=== PATIENT | male | born 1975 | race Hispanic/Latino ===

== ENCOUNTER 2018-02-14 15:17 | Emergency (ER) | payer SELFPAY ==
[2018-02-14 15:18] VITALS: BMI 36.9
--- NOTE | 2018-02-14 15:28 | ED PDOC ---
Arrival/HPI - General Historian: Patient <Dane William - Last Filed: 02/14/18 15:51> <Douglas Cash - Last Filed: 02/14/18 21:57> - General Time Seen by Provider: 02/14/18 15:24 - History of Present Illness Narrative History of Present Illness (Text): 02/14/18 15:24 42 year old male, pmh including ACL tear, nkda, biba as the patient found the patient sleeping in front of a house's lawn. Pt stated that he admits using 2 bags of heroine and took a tablet of xanax, stated that he feels fatigue and tired so he decided to sleep in front of the lawn, received 2mg of narcan when ambulance arrive which he is responsive now with aox3, no chest pain or shortness of breath, no numbness or tingling, no rash, no night sweat, no ulcers , no numbness or tingling, no blood on the scene, no palpitation, no homicidal or suicidal ideation, no auditory or visual complaints, no other medical or psychological complaints. (Dane William) Past Medical History - Provider Review Nursing Documentation Reviewed: Yes - Past History Past History: No Previous - Infectious Disease Hx of Infectious Diseases: None - Tetanus Immunization Tetanus Immunization: Up to Date - Past Medical History Past Medical History: No Previous - Cardiac Hx Cardiac Disorders: No - Pulmonary Hx Respiratory Disorders: No - Neurological Hx Neurological Disorder: No - HEENT Hx HEENT Disorder: No - Renal Hx Renal Disorder: No - Endocrine/Metabolic Hx Endocrine Disorders: No - Hematological/Oncological Hx Blood Disorders: No - Integumentary Hx Dermatological Disorder: No - Musculoskeletal/Rheumatological Hx Falls: Yes Hx Fractures: Yes (RIGHT FOOT AND LEFT KNEE) Hx Unsteady Gait: Yes - Gastrointestinal Hx Gastrointestinal Disorders: No - Genitourinary/Gynecological Hx Genitourinary Disorders: No - Psychiatric Hx Psychophysiologic Disorder: No Hx Anxiety: Yes Hx Depression: Yes Hx Substance Use: Yes (heroin) - Surgical History Hx Orthopedic Surgery: Yes (RIGHT ACL RECONSTRUCTION) - Anesthesia Hx Anesthesia: Yes Hx Anesthesia Reactions: No Hx Malignant Hyperthermia: No - Suicidal Assessment Feels Threatened In Home Enviroment: No <Dane William - Last Filed: 02/14/18 15:51> Family/Social History - Physician Review Nursing Documentation Reviewed: Yes Family/Social History: Unknown Family HX Smoking Status: Heavy Smoker > 10 Cigarettes Daily Hx Alcohol Use: Yes Hx Substance Use: Yes (heroin) Hx Substance Use Treatment: No <Dane William - Last Filed: 02/14/18 15:51> Allergies/Home Meds <Dane William - Last Filed: 02/14/18 15:51> <Douglas Cash - Last Filed: 02/14/18 21:57> Allergies/Adverse Reactions: Allergies No Known Allergies Allergy (Verified 02/14/18 15:30) Home Medications: Home Meds Medication Instructions Recorded Confirmed Alprazolam [Xanax] 2 mg PO BID 02/14/18 02/14/18 Oxycodone HCl [Oxycontin] 30 mg PO TID 02/14/18 02/14/18 Review of Systems - Review of Systems Constitutional: absent: Fatigue, Fevers Eyes: absent: Vision Changes ENT: absent: Hearing Changes Respiratory: absent: SOB, Cough Cardiovascular: absent: Chest Pain Gastrointestinal: absent: Abdominal Pain, Diarrhea, Nausea, Vomiting Musculoskeletal: absent: Arthralgias, Back Pain Skin: absent: Rash, Pruritis Psychiatric: absent: Anxiety, Depression, Suicidal Ideation <WilliamDane Jones - Last Filed: 02/14/18 15:51> Physical Exam - Systems Exam Head: Present: Atraumatic, Normocephalic, Other (no facial bony tenderness). No : Tenderness, Contusion, Swelling, Ecchymosis, Abrasion, Laceration Pupils: Present: PERRL Extroacular Muscles: Present: EOMI Conjunctiva: Present: Normal Mouth: Present: Moist Mucous Membranes Neck: Present: Normal Range of Motion, Trachea Midline. No: MIDLINE TENDERNESS , Paraspinal Tenderness, Lymphadenopathy Respiratory/Chest: Present: Clear to Auscultation, Good Air Exchange. No: Respiratory Distress, Accessory Muscle Use Cardiovascular: Present: Regular Rate and Rhythm, Normal S1, S2. No: Murmurs Abdomen: No: Tenderness, Distention, Peritoneal Signs Back: Present: Normal Inspection Upper Extremity: Present: Normal Inspection, Normal ROM, NORMAL PULSES, Neurovascularly Intact, Capillary Refill < 2s, Norm 2-Pt Discrimination. No: Cyanosis, Edema, Tenderness, Swelling, Erythema, Temperature Abnormalties, Deformity Lower Extremity: Present: Normal Inspection, NORMAL PULSES, Normal ROM, Neurovascularly Intact, Capillary Refill < 2 s. No: Edema, CALF TENDERNESS, Liv's Sign, Tenderness, Swelling, Erythema, Deformity, Temperature Abnormalties Neurological: Present: GCS=15, CN II-XII Intact, Speech Normal, Motor Func Grossly Intact, Gait Normal, Memory Normal, Other (no facial twitching, no tremors) Skin: Present: Warm, Dry, Normal Color. No: Rashes Lymphatic: No: Cervical Adenopathy Psychiatric: Present: Alert, Oriented x 3, Normal Insight, Normal Concentration <Dane William - Last Filed: 02/14/18 15:51> Vital Signs Temp Pulse Resp BP Pulse Ox 02/14/18 16:09 72 18 125/70 99 02/14/18 15:18 98.9 F 77 18 127/69 99 Medical Decision Making <Dane William - Last Filed: 02/14/18 15:51> <Douglas Cash - Last Filed: 02/14/18 21:57> ED Course and Treatment: 02/14/18 15:29 -Labs/magnesium/ck/ua/uds -IVF -Observe and reassess 02/14/18 15:48 -Pt. stated that he doesn't want to stay in the Emergency room, doesn't want to continue the care, declined labs/radiology studies, request IV removed, speaking in clear sentence with aox3, witnessed by Emergency room RN Anitha Anaya which IV removed. -I was grabbing Leaving Against Medical Advice (AMA) paper but he left with didn 't have a chance to explained for risks/benefits and sign the. The patient has been advised that they should return to the emergency room immediately if they change their mind at any time, or if their condition begins to change or worsen in any way.. -Pt. will be placed as elopement. (Dane William) - Lab Interpretations Lab Results: 02/14/18 15:47 Lab Results 02/14/18 15:47: Alcohol, Quantitative < 10 02/14/18 15:47: Salicylates < 1 L, Acetaminophen < 10.0 L 02/14/18 15:47: Sodium 140, Potassium 4.4, Chloride 102, Carbon Dioxide 27, Anion Gap 15, BUN 26 H, Creatinine 1.1, Est GFR ( Amer) > 60, Est GFR ( Non-Af Amer) > 60, Random Glucose 144 H, Calcium 9.4, Magnesium 2.0, Total Bilirubin 0.7, AST 84 H, ALT 45, Alkaline Phosphatase 61, Total Creatine Kinase 2804 H, CK-MB (CK-2) 9.2 H, CK-MB (CK-2) % 0.3 L, Total Protein 8.0, Albumin 4.1 , Globulin 3.9, Albumin/Globulin Ratio 1.1 - PA / FIELD CASHIER / Resident Statement / has reviewed & agrees with the documentation as recorded. <Dane William - Last Filed: 02/14/18 15:51> - PA / FIELD CASHIER / Resident Statement / has reviewed & agrees with the documentation as recorded. <Douglas Cash - Last Filed: 02/14/18 21:57> Disposition/Present on Arrival - Present on Arrival Any Indicators Present on Arrival: No History of DVT/PE: No History of Uncontrolled Diabetes: No Urinary Catheter: No History of Decub. Ulcer: No History Surgical Site Infection Following: None - Disposition Have Diagnosis and Disposition been Completed?: Yes Disposition Time: 15:51 <Dane Wililam - Last Filed: 02/14/18 15:51> <Douglas Cash - Last Filed: 02/14/18 21:57> - Disposition Diagnosis: Non-compliance Disposition: ELOPEMENT - ER ONLY Condition: STABLE Forms: [employer] ([place])
[2018-02-14] MEDS ORDERED: Sodium Chloride 0.9% 1,000 ML IV STA (15:34)
[2018-02-14 15:49] VITALS: RESP 18; TEMP 98.9; O2SAT 99
[2018-02-14 16:02] LABS: ACETAMINOPHEN < 10.0 ug/ml (10.0-20.0); SALICYLATE < 1 mg/dL (2.0-20.0)
[2018-02-14 16:04] LABS: ALB/GLOB RATIO 1.1 (1.1-1.8); ALBUMIN 4.1 g/dL (3.0-4.8); ALT/SGPT 45 U/L (7-56); AST/SGOT 84 U/L (17-59); BLOOD UREA NITROGEN 26 mg/dL (7-21); CALCIUM 9.4 mg/dL (8.4-10.5); GFR AFRICAN-AMERICAN > 60; GFR NON-AFRICAN AMERICAN > 60
[2018-02-14 16:10] VITALS: BP 125/70; PULSE 72
[2018-02-14 16:40] LABS: CK MB% 0.3 % (2.5-3.0); CK-MB 9.2 ng/mL (0.0-3.6)
== END 2018-02-14 15:50 | disposition left against medical advice (07) ==
LOC: ED 15:17
DX: Z91.19 Patient's noncompliance with other medical treatment and regimen (principal); F41.9 Anxiety disorder, unspecified; F19.10 Other psychoactive substance abuse, uncomplicated
CPT/HCPCS: 80053; 82550; 82553; 83735; 99284; G0480

== ENCOUNTER 2018-03-12 12:28 | Emergency (ER) | payer MEDICARE, OTHER ==
[2018-03-12 12:42] VITALS: BP 148/84; RESP 20; TEMP 97.8; BMI 33.9
--- NOTE | 2018-03-12 14:00 | ED PDOC ---
Arrival/HPI - General Chief Complaint: Substance Abuse Time Seen by Provider: 03/12/18 12:37 Historian: Patient, EMS - History of Present Illness Narrative History of Present Illness (Text): 03/12/18 14:21 42-year-old male presents today brought in by ambulance for substance abuse. Patient states that he snorted heroin about one hour prior to arrival. EMS states that they received a phone call that the patient appeared to be under the influence and they arrived on site for the patient standing in no distress. Patient denies chest pain or shortness of breath. He denies headaches dizziness or weakness. Patient admits to drug use. Patient denies alcohol use. Patient denies any trauma or injury. Patient denies suicidal or homicidal ideations. No other complaints Time/Duration: 1 hour Past Medical History - Provider Review Nursing Documentation Reviewed: Yes - Travel History Have you recently traveled outside [place] w/in the past 3 mons?: No - Past History Past History: No Previous - Infectious Disease Hx of Infectious Diseases: None - Tetanus Immunization Tetanus Immunization: Up to Date - Past Medical History Past Medical History: No Previous - Cardiac Hx Cardiac Disorders: No - Pulmonary Hx Respiratory Disorders: No - Neurological Hx Neurological Disorder: No - HEENT Hx HEENT Disorder: No - Renal Hx Renal Disorder: No - Endocrine/Metabolic Hx Endocrine Disorders: No - Hematological/Oncological Hx Blood Disorders: No - Integumentary Hx Dermatological Disorder: No - Musculoskeletal/Rheumatological Hx Falls: Yes Hx Fractures: Yes (RIGHT FOOT AND LEFT KNEE) Hx Unsteady Gait: Yes - Gastrointestinal Hx Gastrointestinal Disorders: No - Genitourinary/Gynecological Hx Genitourinary Disorders: No - Psychiatric Hx Psychophysiologic Disorder: No Hx Anxiety: Yes Hx Depression: Yes Hx Substance Use: Yes (heroin) - Surgical History Hx Orthopedic Surgery: Yes (RIGHT ACL RECONSTRUCTION) - Anesthesia Hx Anesthesia: Yes Hx Anesthesia Reactions: No Hx Malignant Hyperthermia: No - Suicidal Assessment Feels Threatened In Home Enviroment: No Family/Social History - Physician Review Nursing Documentation Reviewed: Yes Family/Social History: Unknown Family HX Smoking Status: Heavy Smoker > 10 Cigarettes Daily Hx Alcohol Use: Yes Hx Substance Use: Yes (heroin) Hx Substance Use Treatment: No Allergies/Home Meds Allergies/Adverse Reactions: Allergies No Known Allergies Allergy (Verified 03/12/18 12:42) Home Medications: Home Meds Medication Instructions Recorded Confirmed Alprazolam [Xanax] 2 mg PO BID 02/14/18 02/14/18 Oxycodone HCl [Oxycontin] 30 mg PO TID 02/14/18 02/14/18 Review of Systems - Review of Systems Constitutional: absent: Fatigue, Fevers Respiratory: absent: SOB, Cough Cardiovascular: absent: Chest Pain, Palpitations Gastrointestinal: absent: Abdominal Pain, Nausea, Vomiting Musculoskeletal: absent: Back Pain, Neck Pain Skin: absent: Rash, Pruritis Neurological: absent: Headache, Dizziness Psychiatric: absent: Anxiety, Depression, Suicidal Ideation Physical Exam Vital Signs Reviewed: Yes Vital Signs Temp Pulse Resp BP Pulse Ox 03/12/18 12:38 97.8 F 97 H 20 148/84 99 Temperature: Afebrile Blood Pressure: Normal Pulse: Regular Respiratory Rate: Normal Appearance: Positive for: Well-Appearing, Non-Toxic, Comfortable Pain Distress: None Mental Status: Positive for: Alert and Oriented X 3 - Systems Exam Head: Present: Atraumatic Mouth: Present: Moist Mucous Membranes Pharnyx: Present: Normal Neck: Present: Normal Range of Motion Respiratory/Chest: Present: Clear to Auscultation, Good Air Exchange. No: Respiratory Distress, Accessory Muscle Use Cardiovascular: Present: Regular Rate and Rhythm, Normal S1, S2. No: Murmurs Abdomen: No: Tenderness, Distention, Rebound, Guarding Back: Present: Normal Inspection Upper Extremity: Present: Normal ROM Lower Extremity: Present: Normal ROM Neurological: Present: GCS=15, Speech Normal Skin: Present: Warm, Dry, Normal Color. No: Rashes Psychiatric: Present: Alert, Oriented x 3 Medical Decision Making ED Course and Treatment: 03/12/18 14:25 42yr old male presents today [facility] for substance abuse. pt is alert and oriented x 3. no distress. fingerstick; 102 pt observed in er; pt reassessment; pt in no distress. ambulating with steady gait. alert and oriented. stable vitals. pt was advised to f/u with pmd and avoid drug use. Patient was advised immediate return if symptoms worsen persist or if new concerning symptoms develop Patient verbalizes understanding of discharge instructions and need for immediate followup. all aspects of this case were discussed the attending of record. Impression: Substance abuse Follow-up with primary care physician within the next 2 days Increase fluids Return if symptoms worsen persist or if new concerning symptoms develop Reassessment Condition: Re-examined, Improved Disposition/Present on Arrival - Present on Arrival Any Indicators Present on Arrival: No History of DVT/PE: No History of Uncontrolled Diabetes: No Urinary Catheter: No History of Decub. Ulcer: No History Surgical Site Infection Following: None - Disposition Have Diagnosis and Disposition been Completed?: Yes Diagnosis: Substance abuse Disposition: HOME/ ROUTINE Disposition Time: 13:56 Patient Plan: Discharge Condition: GOOD Discharge Instructions (ExitCare): Drug Abuse and Drug Addiction (DC), Drug Abuse Treatment Additional Instructions: increase fluids follow up with the Primary care physician return if symptoms worsen,persist or if new symptoms develop. Referrals: Stacey Murillo MD [Staff Provider] - Follow up with primary
[2018-03-12 14:03] VITALS: PULSE 90; O2SAT 97
== END 2018-03-12 14:02 | disposition home or self-care (01) ==
LOC: ED 12:28
DX: F19.10 Other psychoactive substance abuse, uncomplicated (principal); F17.210 Nicotine dependence, cigarettes, uncomplicated